=== PATIENT | male | born 1965 | race African-American/Black ===

== ENCOUNTER 2021-07-26 09:49 | Emergency (ER) | payer MEDICAID ==
[~2021-07-26] VITALS: Ht 167.6 cm; Wt 86.0 kg
[2021-07-26 09:58] VITALS: BP 115/79
== END 2021-07-26 11:00 | disposition home or self-care (01) ==
LOC: EMS 09:53
DX: Z48.00 Encounter for change or removal of nonsurgical wound dressing (principal); F12.90 Cannabis use, unspecified, uncomplicated; F17.210 Nicotine dependence, cigarettes, uncomplicated
CPT/HCPCS: 99282; Z7502

== ENCOUNTER 2021-12-10 04:27 | Emergency (ER) | payer SELFPAY ==
[~2021-12-10] VITALS: Ht 170.2 cm; Wt 86.4 kg
[2021-12-10 04:36] VITALS: BP 159/87
[2021-12-10] MEDS ORDERED: ACETAMINOPHEN 500 MG TABLET PO ONE (04:45)
[2021-12-10] MEDS ORDERED: DOXYCYCLINE HYCLATE 100 MG TABLET PO ONE (04:45)
[2021-12-10] MEDS ORDERED: DOXY-354 PO (04:50)
== END 2021-12-10 05:56 | disposition home or self-care (01) ==
LOC: EMS 04:30
DX: L02.416 Cutaneous abscess of left lower limb (principal); F17.210 Nicotine dependence, cigarettes, uncomplicated; F12.90 Cannabis use, unspecified, uncomplicated
CPT/HCPCS: 99284; Z7502; Z7610